=== PATIENT | male | born 1975 | race Hispanic/Latino ===

== ENCOUNTER 2017-05-27 21:35 | Emergency (ER) | payer SELFPAY ==
[~2017-05-27] VITALS: Ht 170.2 cm; Wt 79.5 kg
[2017-05-27 21:39] VITALS: BP 134/91; PULSE 72; RESP 16; O2SAT 99
--- NOTE | 2017-05-27 22:03 | ED.REPORT ---
HPI- Male Date of Service May 27, 2017 ED Provider: Doc,Ed MD 41 y/o male with no pertinent hx presents to the ED complaining of penis pain and dysuria, onset 3 hours ago. The pt states the pain persists even after urination. It is also worsened with defecation. He also reports mild hematuria. He denies penile discharge, testicular pain, fever, chills and abdominal pain. Pain is sharp and does not radiate. No h/o prostatitis, UTI or STDs. In monogamous relationship with his who is present today. Nursing Notes Stated Complaint: GROIN PAIN Chief Complaint: General Complaint Nursing Notes Reviewed: Yes Allergies: Coded Allergies: No Known Allergies (Unverified Allergy, Unknown, 04/04/15) Scheduled Ciprofloxacin (Ciprofloxacin) 500 Mg Tablet 500 MG PO BID General Time Seen by MD: 22:03 Chief Complaint Dysuria Hx Obtained From: Patient Arrived By: Walk-in Onset Occurred: 1 - 4 hours ago Symptom Duration: Since onset Location: : Penis Quality: Painful Radiation: : Does not radiate Severity: Current: Moderate Severity: Maximum: Moderate Recent Healthcare: No recent doctor visit Similar Sx Previous: No Past Medical History Past Medical History Notes: PCP: Natasha Past Medical History Gastritis Past Surgical History none reported Smoking History Unknown if Ever Smoker Social History Alcohol Use: "Social" Other Social History: Good social support Ambulatory Status Independent Review of Systems Constitutional: Denies: Chills, Fever GI: Denies: Abdominal pain Male: Reports Dysuria, Reports Hematuria, Denies Penile discharge, Denies Testicular pain Complete sys rev & neg: except as marked. Physical Exam Initial Vital Signs Vital Signs (First) Date Time Temp Pulse Resp B/P Pulse Ox O2 Delivery O2 Flow Rate FiO2 05/27/17 21:39 36.8 72 16 134/91 99 Room Air Initial VS: Reviewed Head / Eyes: Atraumatic, Normocephalic Neck: Supple, Non-tender, Full range of motion Respiratory: Breath sounds normal, Clear to auscultation, No respiratory distress Cardiovascular: Regular rate & rhythm, Heart sounds normal, Intact distal pulses Abdomen / GI: Soft, Non-tender Extremities: Vascular intact, Neuro intact, No swelling, No tenderness Neurologic: Alert, Oriented, Nonfocal Male Genitourinary: Atraumatic, Penis NL, No penile discharge, Testes NL, No mass, No hernia (no inguinal or femoral hernia) Testes / Epidid / Scrotum: Negative: Testis tender L, Testis tender R Prostate tender on rectal exam, mildly enlarged, non-nodular General/Constitutional: Awake, Alert, Cooperative Skin: Atraumatic, Color NL, No rash, Warm, Dry Interpretation & Diagnostics Lab Results Interpretation Result Diagram: 05/27/17 2340 Test 05/27/17 22:49 05/27/17 23:40 Urine Color Straw (YELLOW) Urine Appearance Clear (CLEAR,HAZY) Urine pH 7.0 (5.0-8.0) Urine Specific [place] 1.004 (1.003-1.035) Urine Protein Negativemg/dL (NEG,TRACE) Urine Glucose (UA) Negativemg/dL (NEGATIVE) Urine Ketones Negativemg/dL (NEGATIVE) Urine Occult Blood Negative (NEGATIVE) Urine Nitrite Negative (NEGATIVE) Urine Bilirubin Negative (NEGATIVE) Urine Urobilinogen Normalmg/dL (NORMAL) Urine Leukocyte Esterase Negative (NEGATIVE) Urine RBC 0-2/hpf (0-2) Urine WBC 0-5/hpf (0-5) Urine Epithelial Cells None/hpf (NONE-MOD) Urine Crystals None seen (NONE SEEN) Urine Bacteria None/hpf (NONE-FEW) Urine Hyaline Casts None/lpf (NONE) Urine Granular Casts None seen (NONE SEEN) Urine Waxy Casts None seen (NONE SEEN) Urine Red Blood Cell Casts None seen (NONE SEEN) Urine White Blood Cell Casts None seen (NONE SEEN) Urine Mucus None seen (None Seen) Urine Trichomonas None seen (NONE SEEN) Urine Yeast None (NONE SEEN) Urinalysis Comment None Urine Culture Reflexed Not indicated White Blood Count 6.0th/mm3 (3.8-10.1) Red Blood Count 4.53mil/mm3 (4.40-5.80) Hemoglobin 12.8g/dL (13.8-17.2) Hematocrit 38.1% (41.0-50.0) Mean Corpuscular Volume 84.1fL (81-100) Mean Corpuscular Hemoglobin 28.3pg (27.0-35.0) Mean Corpuscular Hemoglobin Concent 33.6% (32.0-37.0) Red Cell Distribution Width 12.7% (12.3-15.4) Platelet Count 260bil/L (150-400) Neutrophils (%) (Auto) 37.8% (40-74) Lymphocytes (%) (Auto) 45.1% (14-46) Monocytes (%) (Auto) 11.3% (4-12) Eosinophils (%) (Auto) 4.8% (0-5) Basophils (%) (Auto) 0.7% (0-3) Prostate Specific Antigen 0.7ng/mL (0.0-4.0) Hold Donahue Top Tube Received (Received) Re-Eval/Medical Decision Med Decision/Clinical Course GC Chlamydia and PSA are pending at the time of discharge. Based on his exam and history I believe he is suffering from prostatitis. I discussed with him that this is not contagious and not an STD. He will follow up with his primary care provider next week. He is prescribed Cipro 500 mg twice a day 2 weeks. UA does not show blood or signs of infection Re-Evaluation/Progress : Time of Eval: 00:10 Re-Evaluation/Progress Note: Rechecked pt. Discussed lab results, diagnosis and plan to discharge. Pt understands and agrees with the plan. F/U instructions and RTER warning given. All questions addressed. Counseled Regarding: Diagnosis, Lab results, Need for follow-up, When/why to return to ED Discharge & Departure Impression: Primary Impression: Prostatitis Prostatitis type: acute Qualified Code: N41.0 - Acute prostatitis Disposition: Home Discharge Condition All VS Reviewed: Yes Condition: Stable Patient Instructions: Prostatitis (ED) Additional Instructions: Thank you for trusting us with your care today. I believe the cause of your symptoms is prostatitis which is caused by infection /inflammation of the prostate. Take the antibiotics twice daily as directed for 2 weeks. Follow-up with your primary care provider next week for recheck Return to the ER for new or worsening symptoms. Referrals: Minesh Torres MD (PCP) Scribe Attestation Portions of this note were transcribed by Lanette Moreno. I, , personally performed the history, physical exam and medical decision- making;I reviewed and confirmed the accuracy of the information in the transcribed note. Signed by Nettie Bae. 05/28/17 00:47 copies to: Minesh Torres MD, Gary R DO May 27, 2017 22:03 Lanette Moreno May 28, 2017 00:45
[2017-05-27 22:55] LABS: APPEARANCE,URINE CLEAR (CLEAR,HAZY); COLOR,URINE STRAW (YELLOW); OCCULT BLOOD,URINE NEGATIVE (NEGATIVE); UROBILINOGEN,URINE NORMAL (NORMAL)
[2017-05-27 23:53] LABS: BASOPHILS % (AUTO) 0.7 % (0-3); EOSINOPHILS % (AUTO) 4.8 % (0-5); MONOCYTES % (AUTO) 11.3 % (4-12); Mean Corpuscular Hemoglobin 28.3 pg (27.0-35.0); Mean Corpuscular Volume 84.1 fL (81-100); NEUTROPHILS % (AUTO) 37.8 % (40-74); Platelet Count 260 bil/L (150-400)
[2017-05-28] MEDS ORDERED: CIPR-198 PO (00:14)
[2017-05-28 00:26] VITALS: BP 135/96; PULSE 78; RESP 16; O2SAT 98
== END 2017-05-28 00:26 | disposition home or self-care (01) ==
LOC: SED 21:35
DX: N41.0 Acute prostatitis (principal)
CPT/HCPCS: 36415; 81000; 84153; 85025; 87491; 87591; 96372; 99284; J1885